=== PATIENT | female | born 1960 | race Hispanic/Latino ===

== ENCOUNTER 2019-05-26 14:19 | Inpatient (IN) | payer BC, OTHER ==
[~2019-05-26 14:19] MED LIST: ATOR10 PO; FENT100PAT TD; FENT25PAT TD; HYDR-4068 PO; METO50TA18 PO
[2019-05-26 14:43] LABS: BASOPHILS % (AUTO) 0.6 % (0.0-5.0); EOSINOPHILS % (AUTO) 6.9 % (0.0-8.0); HEMATOCRIT 29.1 % (36-48); LYMPHOCYTES % (AUTO) 18.8 % (21.0-51.0); MEAN CORPUSCULAR HEMOGLOBIN 32.3 pg (27.0-33.0); MEAN CORPUSCULAR HGB CONC 34.2 g/dL (32.0-36.0); MEAN CORPUSCULAR VOLUME 94.4 fL (79-99); MONOCYTES % (AUTO) 11.1 % (3.0-13.0); NEUTROPHILS % (AUTO) 62.6 % (40.0-77.0); PLATELET COUNT (AUTO) 90 K/uL (130-400); RED BLOOD CELL COUNT(AUTO) 3.09 MIL/uL (4.00-5.50); RED CELL DISTRIBUTION WIDTH 14.3 % (11.0-15.5); WHITE BLOOD COUNT (AUTO) 2.8 K/uL (4.8-10.8)
[2019-05-26 15:02] LABS: CREATININE 4.6 mg/dL (0.5-1.5); POTASSIUM 4.3 mmol/L (3.5-5.1)
[2019-05-26 15:09] LABS: ALBUMIN 3.6 g/dL (3.5-5.0); BILIRUBIN,TOTAL 0.8 mg/dL (0.2-1.0); TOTAL PROTEIN, SERUM 6.8 g/dL (6.0-8.3)
[2019-05-26 15:11] LABS: EOSINOPHILS % (MANUAL) 5 % (1-6); LYMPHOCYTES % (MANUAL) 27 % (22-44); MONOCYTES % (MANUAL) 6 % (2-9); SEGMENTED NEUTROPHILS % 62 % (40-70)
[2019-05-26 15:12] LABS: MAN.DIFF COMMENT-IMPRESSION MANUAL DIFFERENTIAL
[2019-05-26 15:13] LABS: PLATELET MORPHOLOGY COMMENT DECREASED
[2019-05-26 15:24] LABS: ABG BASE EXCESS -4.5 mmol/L (-2.0-3.0); ABG HCO3 21.7 mmol/L (21.0-28.0); ABG OXYGEN SATURATION 91.6 % (95.0-99.0); ABG PCO2 45 mmHg (32-45)
[2019-05-26 15:35] LABS: INR 1.02 (0.85-1.15); PARTIAL THROMBOPLASTIN TIME 25.5 SEC (26.3-35.5); PROTHROMBIN TIME 10.7 SEC (9.6-11.6)
[2019-05-26] MEDS ORDERED: CALCIUM GLUCONATE 1 GM/10 ML VIAL IV ONE (15:44)
[2019-05-26] MEDS ORDERED: SODIUM BICARB 50MEQ 50ML VIAL ONE (15:44)
[2019-05-26] MEDS ORDERED: SODIUM CHLORIDE 0.9% 100 ML IV ONE (15:45)
[2019-05-26] MEDS ORDERED: IOHEXOL-350 75 ML VIAL IV ONE (17:12)
[2019-05-26] MEDS ORDERED: ACETAMINOPHEN 325 MG TAB ONE (17:41)
[2019-05-26] MEDS ORDERED: HYDROCODONE/ACETAMINOPHEN 5/325 MG TAB PO PRN (17:45)
[2019-05-26] MEDS ORDERED: ACETAMINOPHEN 325 MG TAB PO PRN (17:45)
[2019-05-26] MEDS ORDERED: LACTULOSE 20 GM/30 ML UDCUP PO PRN (17:45)
[2019-05-26] MEDS ORDERED: ONDANSETRON HCL 4 MG/2 ML VIAL IV PRN (17:45)
[2019-05-26] MEDS ORDERED: SODIUM BICARBONATE 650 MG TAB PO PRN (17:45)
[2019-05-26] MEDS ORDERED: IPRATROPIUM/ALBUTEROL SULFATE 3 ML SOLUTION IH SCH (18:00)
[2019-05-26] MEDS ORDERED: HYDRALAZINE HCL 20 MG/ML VIAL IV PRN (18:30)
[2019-05-26 18:34] LABS: APPEARANCE,URINE Clear (CLEAR); BILIRUBIN,URINE Negative (NEGATIVE); COLOR,URINE Yellow (YELLOW); GLUCOSE, URINE (UA) Negative (NEGATIVE); KETONES,URINE Negative (NEGATIVE); LEUKOCYTE ESTERASE ,URINE Small (NEGATIVE); NITRATE,URINE Negative (NEGATIVE); OCCULT BLOOD,URINE Large (NEGATIVE); PH,URINE 6.5 (5.0-8.0); PROTEIN,URINE POS 1+ mg/dL (NEGATIVE); UROBILINOGEN,URINE 0.2 mg/dL (0.2-1.0)
[2019-05-26] MEDS ORDERED: IPRATROPIUM/ALBUTEROL SULFATE 3 ML SOLUTION IH ONE (18:51)
[2019-05-26 18:54] LABS: RBC,URINE 26-50 /HPF (0-1)
[2019-05-26 18:55] LABS: WBC,URINE 0-1 /HPF (0-1)
[2019-05-26 18:56] LABS: BACTERIA,URINE Rare /HPF (None Seen); MUCUS,URINE Rare LPF (None Seen)
[2019-05-26 21:20] LABS: AMMONIA < 3 umol/L (11-32); THYROID STIMULATING HORMONE 2.03 uIU/mL (0.36-3.74)
[2019-05-27] MEDS ORDERED: FAMOTIDINE/PF 20 MG/2 ML VIAL IV SCH (09:00)
== END 2019-05-26 21:17 | disposition left against medical advice (07) | DRG 204 ==
LOC: EDH 14:19 → EDHIP 14:20
PROVIDERS: ADMIT Family Medicine; ATTEND Family Medicine
DX: R06.02 Shortness of breath (principal); G93.41 Metabolic encephalopathy; N18.6 End stage renal disease; I12.0 Hypertensive chronic kidney disease with stage 5 chronic kidney disease or end stage renal disease; D69.6 Thrombocytopenia, unspecified; E66.9 Obesity, unspecified; Z85.528 Personal history of other malignant neoplasm of kidney; Z90.5 Acquired absence of kidney; Z96.649 Presence of unspecified artificial hip joint; Z99.2 Dependence on renal dialysis; Z53.21 Procedure and treatment not carried out due to patient leaving prior to being seen by health care provider
CPT/HCPCS: 36415; 36600; 71045; 71275; 80053; 81001; 82140; 82435; 82550; 82803; 82947; 83605; 84132; 84295; 84443; 84484; 85018; 85025; 85610; 85730; 87040; 93005; 94640; 94664; 99291; G0378; J0610; J3490; Q9967

== ENCOUNTER 2021-04-07 05:04 | Emergency (ER) | payer OTHER ==
[~2021-04-07] VITALS: Ht 170.2 cm; Wt 86.2 kg
[~2021-04-07 05:04] MED LIST changes: +AMLO-257 PO; -ATOR10 PO; +ENOX40DI9 SQ; -FENT25PAT TD; -METO50TA18 PO; +RIZA10TA41 PO
[2021-04-07 06:29] VITALS: BP 154/74
[2021-04-07 06:33] LABS: BASOPHILS % (AUTO) 0.7 % (0.0-5.0); EOSINOPHILS % (AUTO) 4.9 % (0.0-8.0); HEMATOCRIT 33.7 % (36-48); LYMPHOCYTES % (AUTO) 29.6 % (21.0-51.0); MEAN CORPUSCULAR HGB CONC 31.8 g/dL (32.0-36.0); MEAN CORPUSCULAR VOLUME 97.7 fL (79-99); MONOCYTES % (AUTO) 7.8 % (3.0-13.0); PLATELET COUNT (AUTO) 99 K/uL (130-400); RED BLOOD CELL COUNT(AUTO) 3.45 MIL/uL (4.00-5.50); RED CELL DISTRIBUTION WIDTH 14.3 % (11.0-15.5); WHITE BLOOD COUNT (AUTO) 3.1 K/uL (4.8-10.8)
[2021-04-07 06:46] LABS: ALBUMIN 4.1 g/dL (3.5-5.0); BILIRUBIN,TOTAL 0.5 mg/dL (0.2-1.0); POTASSIUM 5.3 mmol/L (3.5-5.1); TOTAL PROTEIN, SERUM 7.2 g/dL (6.0-8.3)
[2021-04-07 06:48] LABS: CREATININE 8.3 mg/dL (0.5-1.5)
[2021-04-07 07:10] LABS: INR 1.15 (0.85-1.15); PROTHROMBIN TIME 12.4 SEC (9.6-11.6)
[2021-04-07 08:10] VITALS: BP 165/89
[2021-04-07] MEDS ORDERED: HEPARIN 1,000 UNIT VIAL ONE (12:08)
[2021-04-07] MEDS ORDERED: LIDOCAINE HCL 1% MDV 50ML VIAL ONE (12:08)
[2021-04-07 13:31] VITALS: BP 159/69
== END 2021-04-07 14:34 | disposition home or self-care (01) ==
LOC: EDH 05:04
DX: T82.868A Thrombosis due to vascular prosthetic devices, implants and grafts, initial encounter (principal); I12.0 Hypertensive chronic kidney disease with stage 5 chronic kidney disease or end stage renal disease; N18.6 End stage renal disease; Z99.2 Dependence on renal dialysis; E78.00 Pure hypercholesterolemia, unspecified; Z88.8 Allergy status to other drugs, medicaments and biological substances; Y73.8 Miscellaneous gastroenterology and urology devices associated with adverse incidents, not elsewhere classified
CPT/HCPCS: 36415; 36580; 71045; 77001; 80053; 84484; 85025; 85610; 99285; C1752; C1769; J1644 ×2; J3490

== ENCOUNTER 2021-07-03 06:17 | Emergency (ER) | payer OTHER ==
[~2021-07-03] VITALS: Ht 170.2 cm; Wt 90.7 kg
[2021-07-03 07:14] LABS: BASOPHILS % (AUTO) 0.4 % (0.0-5.0); HEMATOCRIT 25.8 % (36-48); MEAN CORPUSCULAR HEMOGLOBIN 29.6 pg (27.0-33.0); MEAN CORPUSCULAR HGB CONC 30.6 g/dL (32.0-36.0); MEAN CORPUSCULAR VOLUME 96.6 fL (79-99); MONOCYTES % (AUTO) 12.1 % (3.0-13.0); NEUTROPHILS % (AUTO) 77.9 % (40.0-77.0); PLATELET COUNT (AUTO) 200 K/uL (130-400); RED BLOOD CELL COUNT(AUTO) 2.67 MIL/uL (4.00-5.50); RED CELL DISTRIBUTION WIDTH 14.8 % (11.0-15.5)
[2021-07-03 07:30] LABS: ALBUMIN 3.2 g/dL (3.5-5.0); CARBON DIOXIDE 29 mmol/L (21-32); CHLORIDE 100 mmol/L (101-111); GLOMERULAR FILTR. RATE CALC 5 mL/min (>60); GLUCOSE,RANDOM 84 mg/dL (70-105); INR 1.55 (0.85-1.15); POTASSIUM 3.9 mmol/L (3.5-5.1); PROTHROMBIN TIME 16.2 SEC (9.6-11.6); SODIUM SERUM 143 mmol/L (136-145); UREA NITROGEN, BLOOD 51 mg/dL (7-18)
[2021-07-03 07:34] LABS: ASPARTATE AMINOTRANSFERASE 11 U/L (10-37); BILIRUBIN,TOTAL 0.5 mg/dL (0.2-1.0)
[2021-07-03 07:39] LABS: ALANINE AMINOTRANSFERASE < 6 U/L (12-78)
[2021-07-03 07:40] LABS: CREATININE 8.2 mg/dL (0.5-1.5)
[2021-07-03] MEDS ORDERED: LIDOCAINE HCL 2% VISCOUS 15 ML UDCUP PO ONE (10:30)
[2021-07-03 13:53] VITALS: BP 141/84
[2021-07-03] MEDS ORDERED: LIDOCAINE HCL 1% 20 ML VIAL ONE (13:55)
[2021-07-03] MEDS ORDERED: HEPARIN 10,000 UNIT/10ML (1,000 UNIT/ML) VIAL ONE (14:24)
[2021-07-03] MEDS ORDERED: HEPARIN 1,000 UNIT VIAL ONE (14:24)
== END 2021-07-03 15:22 | disposition home or self-care (01) ==
LOC: EDH 06:17
DX: T82.41XA Breakdown (mechanical) of vascular dialysis catheter, initial encounter (principal); I12.0 Hypertensive chronic kidney disease with stage 5 chronic kidney disease or end stage renal disease; N18.6 End stage renal disease; Z83.3 Family history of diabetes mellitus; Z88.8 Allergy status to other drugs, medicaments and biological substances; Z99.2 Dependence on renal dialysis; Y84.8 Other medical procedures as the cause of abnormal reaction of the patient, or of later complication, without mention of misadventure at the time of the procedure; Y92.89 Other specified places as the place of occurrence of the external cause
CPT/HCPCS: 36415; 36580; 77001; 80053; 85025; 85610; 99285; C1752; C1894; J1644 ×2

== ENCOUNTER 2021-07-04 04:12 | Inpatient (IN) | payer OTHER ==
[~2021-07-04] VITALS: Ht 170.2 cm; Wt 83.5 kg
[2021-07-04] MEDS ORDERED: HYDROMORPHONE 1 MG INJ IVP ONE (05:00)
[2021-07-04] MEDS ORDERED: HYDROMORPHONE 1 MG INJ IVP PRN (05:00)
[2021-07-04] MEDS ORDERED: DiphenhydrAMINE HCL 50 MG/ML VIAL IV ONE (05:30)
[2021-07-04] MEDS ORDERED: LORAZEPAM 2 MG/ML 1 ML VIAL IVP ONE (05:30)
[2021-07-04] MEDS ORDERED: PHARMACY COMMUNICATION MISC SCH (12:30)
[2021-07-04 12:47] LABS: INR 2.45 (0.85-1.15); PROTHROMBIN TIME 24.6 SEC (9.6-11.6)
[2021-07-04 12:49] LABS: PARTIAL THROMBOPLASTIN TIME 47.4 SEC (26.3-35.5)
[2021-07-04] MEDS ORDERED: ONDANSETRON 4MG INJ IVP PRN (13:30)
[2021-07-04] MEDS ORDERED: FENTANYL 100 MCG/HR PATCH TD SCH (14:00)
[2021-07-04] MEDS ORDERED: 0.9%NACL 50ML 50 ML IV ONE (16:06)
[2021-07-04] MEDS: CEFAZOLIN SODIUM 1 GM VIAL IVP SCH (16:21)
[2021-07-04] MEDS: NS-20 MEQ KCL 1000ML 1,000 ML IV SCH (16:21)
[2021-07-04] MEDS: HYDROMORPHONE 1 MG INJ IVP PRN ×2 (16:23→21:52)
[2021-07-04 22:10] VITALS: BP 145/75
[2021-07-04] MEDS ORDERED: HYDROMORPHONE 4MG/ML 1ML VIAL IVP PRN (23:30)
[2021-07-05] VITALS (20 sets, daily range): BP systolic 130–169; BP diastolic 64–90
[2021-07-05] MEDS ORDERED: HYDROMORPHONE 2 MG VIAL (2MG/ML) ONE ×2 (01:28→05:05)
[2021-07-05 08:44] LABS: HEMATOCRIT 27.4 % (36-48); MEAN CORPUSCULAR HEMOGLOBIN 29.3 pg (27.0-33.0); MEAN CORPUSCULAR HGB CONC 30.7 g/dL (32.0-36.0); MEAN CORPUSCULAR VOLUME 95.5 fL (79-99); PLATELET COUNT (AUTO) 194 K/uL (130-400); RED BLOOD CELL COUNT(AUTO) 2.87 MIL/uL (4.00-5.50); RED CELL DISTRIBUTION WIDTH 14.4 % (11.0-15.5); WHITE BLOOD COUNT (AUTO) 4.8 K/uL (4.8-10.8)
[2021-07-05] MEDS: HYDROMORPHONE 2 MG VIAL (2MG/ML) IVP PRN ×3 (08:48→22:18)
[2021-07-05 08:57] LABS: CREATININE 7.8 mg/dL (0.5-1.5); POTASSIUM 4.2 mmol/L (3.5-5.1)
[2021-07-05 09:55] LABS: BASOPHILS % (MANUAL) 1 % (0-2); EOSINOPHILS % (MANUAL) 6 % (1-6); LYMPHOCYTES % (MANUAL) 16 % (22-44); MAN.DIFF COMMENT-IMPRESSION MANUAL DIFFERENTIAL; MONOCYTES % (MANUAL) 6 % (2-9); PLATELET MORPHOLOGY COMMENT ADEQUATE; SEGMENTED NEUTROPHILS % 71 % (40-70)
[2021-07-05] MEDS ORDERED: IPRATROPIUM/ALBUTEROL SULFATE 3 ML SOLUTION IH SCH (12:00)
[2021-07-05] MEDS: NS-20 MEQ KCL 1000ML 1,000 ML IV SCH (12:30)
[2021-07-05] MEDS: FENTANYL 100 MCG/HR PATCH TD SCH (12:55)
[2021-07-05] MEDS: IPRATROPIUM/ALBUTEROL SULFATE 3 ML SOLUTION IH SCH ×2 (13:36→18:14)
[2021-07-05] MEDS ORDERED: DIPHENHYDRAMINE HCL 25 MG CAPSULE PO SCH (15:30)
[2021-07-05] MEDS ORDERED: DIPHENHYDRAMINE HCL 25 MG CAPSULE ONE (15:33)
[2021-07-05] MEDS ORDERED: DiphenhydrAMINE HCL 50 MG/ML VIAL ONE (15:40)
[2021-07-05] MEDS ORDERED: DiphenhydrAMINE HCL 50 MG/ML VIAL IV ONE (16:00)
[2021-07-05] MEDS ORDERED: HEPARIN 5,000 UNIT VIAL ONE (18:34)
[2021-07-05] MEDS ORDERED: HEPARIN 5,000 UNIT VIAL SQ SCH (19:00)
[2021-07-05] MEDS: HEPARIN 5,000 UNIT VIAL IJ SCH (19:30)
[2021-07-06] VITALS (16 sets, daily range): BP systolic 134–167; BP diastolic 62–97
[2021-07-06] MEDS: HYDROMORPHONE 2 MG VIAL (2MG/ML) IVP PRN ×5 (04:06→23:24)
[2021-07-06] MEDS: IPRATROPIUM/ALBUTEROL SULFATE 3 ML SOLUTION IH SCH ×4 (06:27→19:14)
[2021-07-06] MEDS: AMLODIPINE 5 MG TAB PO SCH (08:15)
[2021-07-06] MEDS: ENOXAPARIN SODIUM 40 MG/0.4 ML SYRINGE SQ SCH (08:16)
[2021-07-06] MEDS: RIZATRIPTAN 10 MG PO SCH (09:00)
[2021-07-06] MEDS ORDERED: 0.9%NACL 1000ML 2,000 ML IV ONE (09:42)
[2021-07-06] MEDS: DiphenhydrAMINE HCL 50 MG/ML VIAL IV SCH (10:30)
[2021-07-06] MEDS ORDERED: DiphenhydrAMINE HCL 50 MG/ML VIAL ONE (11:06)
[2021-07-06] MEDS: HEPARIN 5,000 UNIT VIAL IJ SCH ×2 (11:30→12:05)
[2021-07-06] MEDS: LORAZEPAM 2 MG/ML 1 ML VIAL IVP SCH ×2 (14:00→18:00)
[2021-07-06 15:13] LABS: HEPATITIS Bs ANTIGEN SCREEN P Negative (Negative)
[2021-07-06] MEDS: CEFAZOLIN SODIUM 1 GM VIAL IVP SCH (15:29)
[2021-07-06] MEDS: NS-20 MEQ KCL 1000ML 1,000 ML IV SCH (16:33)
[2021-07-06] MEDS: HYDROCODONE/ACETAMINOPHEN 10/325 MG TAB PO PRN (21:43)
[2021-07-06] MEDS: GUAIFENESIN-DM 200/20 MG 10 ML PO PRN (23:24)
[2021-07-07] VITALS (23 sets, daily range): BP systolic 86–184; BP diastolic 41–99
[2021-07-07] MEDS: HYDROMORPHONE 2 MG VIAL (2MG/ML) IVP PRN ×6 (03:33→21:47)
[2021-07-07] MEDS: GUAIFENESIN-DM 200/20 MG 10 ML PO PRN ×2 (03:42→20:04)
[2021-07-07] MEDS: IPRATROPIUM/ALBUTEROL SULFATE 3 ML SOLUTION IH SCH ×7 (03:52→23:00)
[2021-07-07] MEDS: HYDROCODONE/ACETAMINOPHEN 10/325 MG TAB PO PRN (06:05)
[2021-07-07] MEDS: DiphenhydrAMINE HCL 50 MG/ML VIAL IV SCH (07:26)
[2021-07-07 07:52] LABS: HEMATOCRIT 28.2 % (36-48); MEAN CORPUSCULAR HEMOGLOBIN 28.6 pg (27.0-33.0); MEAN CORPUSCULAR HGB CONC 30.1 g/dL (32.0-36.0); MEAN CORPUSCULAR VOLUME 94.9 fL (79-99); PLATELET COUNT (AUTO) 207 K/uL (130-400); RED BLOOD CELL COUNT(AUTO) 2.97 MIL/uL (4.00-5.50); RED CELL DISTRIBUTION WIDTH 14.6 % (11.0-15.5); WHITE BLOOD COUNT (AUTO) 5.9 K/uL (4.8-10.8)
[2021-07-07 08:26] LABS: ALBUMIN 2.7 g/dL (3.5-5.0); BILIRUBIN,TOTAL 0.4 mg/dL (0.2-1.0); PHOSPHORUS 5.7 mg/dL (2.5-4.9); POTASSIUM 4.2 mmol/L (3.5-5.1); TOTAL PROTEIN, SERUM 6.7 g/dL (6.0-8.3)
[2021-07-07] MEDS: RIZATRIPTAN 10 MG PO SCH (09:00)
[2021-07-07] MEDS: AMLODIPINE 5 MG TAB PO SCH (09:00)
[2021-07-07 09:26] LABS: BASOPHILS % (MANUAL) 1 % (0-2); EOSINOPHILS % (MANUAL) 3 % (1-6); LYMPHOCYTES % (MANUAL) 13 % (22-44); MAN.DIFF COMMENT-IMPRESSION MANUAL DIFFERENTIAL; MONOCYTES % (MANUAL) 10 % (2-9); PLATELET MORPHOLOGY COMMENT ADEQUATE; SEGMENTED NEUTROPHILS % 73 % (40-70)
[2021-07-07] MEDS: ENOXAPARIN SODIUM 40 MG/0.4 ML SYRINGE SQ SCH (10:49)
[2021-07-07] MEDS: HEPARIN 5,000 UNIT VIAL IJ SCH ×2 (11:18→19:30)
[2021-07-07] MEDS: FENTANYL 100 MCG/HR PATCH TD SCH (13:12)
[2021-07-07] MEDS ORDERED: METOPROLOL TARTRATE 1 MG/ML 5ML VIAL IV ONE (15:37)
[2021-07-07] MEDS ORDERED: AMIODARONE 150MG VIAL 150 MG in DEXTROSE 5%-WATER 100 ML IV SCH (16:00)
[2021-07-07] MEDS ORDERED: PHARMACY COMMUNICATION MISC SCH (16:00)
[2021-07-07] MEDS ORDERED: AMIODARONE 360MG/200ML D5W(1MG/MIN) IV SCH ×2 (16:30)
[2021-07-07] MEDS: CEFAZOLIN SODIUM 1 GM VIAL IVP SCH (16:47)
[2021-07-07] MEDS: LORAZEPAM 2 MG/ML 1 ML VIAL IVP SCH (17:55)
[2021-07-07] MEDS: METOPROLOL TARTRATE 1 MG/ML 5ML VIAL IV PRN ×2 (18:22→18:24)
[2021-07-07] MEDS: METOPROLOL TARTRATE 25 MG TAB PO SCH (20:04)
[2021-07-07] MEDS ORDERED: AMIODARONE 540 MG/D5W 300ML (0.5MG/MIN) IV SCH ×2 (22:30)
[2021-07-08] MEDS: HYDROMORPHONE 2 MG VIAL (2MG/ML) IVP PRN ×5 (02:28→20:29)
[2021-07-08] MEDS: HEPARIN 5,000 UNIT VIAL IJ SCH (03:30)
[2021-07-08 04:09] VITALS: BP 126/72
[2021-07-08] MEDS: IPRATROPIUM/ALBUTEROL SULFATE 3 ML SOLUTION IH SCH (06:41)
[2021-07-08 07:00] VITALS: BP 126/69
[2021-07-08] MEDS: METOPROLOL TARTRATE 25 MG TAB PO SCH (07:56)
[2021-07-08] MEDS: CEFAZOLIN SODIUM 1 GM VIAL IVP SCH (07:57)
[2021-07-08] MEDS: ENOXAPARIN SODIUM 40 MG/0.4 ML SYRINGE SQ SCH (07:58)
[2021-07-08] MEDS: RIZATRIPTAN 10 MG PO SCH (08:05)
[2021-07-08] MEDS ORDERED: IPRATROPIUM/ALBUTEROL SULFATE 3 ML SOLUTION IH PRN (09:00)
[2021-07-08] MEDS ORDERED: ENOXAPARIN SODIUM 1 MG/KG SQ SCH (09:00)
[2021-07-08] MEDS: ENOXAPARIN SODIUM 80 MG/0.8 ML SQ SCH (09:39)
[2021-07-08] MEDS: DILTIAZEM 60MG TAB PO SCH ×4 (09:39→23:47)
[2021-07-08 11:00] VITALS: BP 107/64
[2021-07-08 16:00] VITALS: BP 101/60
[2021-07-08 20:05] VITALS: BP 97/60
[2021-07-09] VITALS (7 sets, daily range): BP systolic 116–169; BP diastolic 65–122
[2021-07-09] MEDS: HYDROMORPHONE 2 MG VIAL (2MG/ML) IVP PRN ×5 (01:02→20:54)
[2021-07-09] MEDS ORDERED: HEPARIN 5,000 UNIT VIAL IJ SCH (03:30)
[2021-07-09 04:30] LABS: MEAN CORPUSCULAR HEMOGLOBIN 28.9 pg (27.0-33.0); MEAN CORPUSCULAR HGB CONC 30.4 g/dL (32.0-36.0); MEAN CORPUSCULAR VOLUME 95.1 fL (79-99); RED BLOOD CELL COUNT(AUTO) 2.84 MIL/uL (4.00-5.50); RED CELL DISTRIBUTION WIDTH 14.5 % (11.0-15.5); WHITE BLOOD COUNT (AUTO) 3.8 K/uL (4.8-10.8)
[2021-07-09 04:48] LABS: CREATININE 7.4 mg/dL (0.5-1.5); POTASSIUM 4.1 mmol/L (3.5-5.1)
[2021-07-09] MEDS: DILTIAZEM 60MG TAB PO SCH ×3 (05:51→18:03)
[2021-07-09] MEDS: CEFAZOLIN SODIUM 1 GM VIAL IVP SCH (08:17)
[2021-07-09] MEDS: ENOXAPARIN SODIUM 80 MG/0.8 ML SQ SCH (08:18)
[2021-07-09] MEDS: RIZATRIPTAN 10 MG PO SCH (08:18)
[2021-07-09] MEDS: GUAIFENESIN-DM 200/20 MG 10 ML PO PRN ×2 (10:47→18:02)
[2021-07-09] MEDS: FENTANYL 100 MCG/HR PATCH TD SCH (12:35)
[2021-07-09] MEDS ORDERED: PHARMACY COMMUNICATION MISC SCH (14:30)
[2021-07-09] MEDS ORDERED: COMPOUND PO MISCELLANEOUS 1 EACH MISC MISC PRN (15:00)
[2021-07-09] MEDS: MAG/ALUM/SIMETH 30ML 60 ML, LIDOCAINE HCL 2% VISCOUS 60 ML, DIPHENHYDRAMINE HCL 150 MG PO SCH ×3 (18:02)
[2021-07-09] MEDS: DiphenhydrAMINE HCL 50 MG/ML VIAL IV PRN (20:28)
[2021-07-10] VITALS (18 sets, daily range): BP systolic 125–151; BP diastolic 53–90
[2021-07-10] MEDS: DILTIAZEM 60MG TAB PO SCH ×3 (00:39→12:38)
[2021-07-10] MEDS: HYDROCODONE/ACETAMINOPHEN 10/325 MG TAB PO PRN (03:45)
[2021-07-10 07:02] LABS: INR 1.85 (0.85-1.15); PROTHROMBIN TIME 19.1 SEC (9.6-11.6)
[2021-07-10] MEDS: RIZATRIPTAN 10 MG PO SCH (07:36)
[2021-07-10] MEDS: CEFAZOLIN SODIUM 1 GM VIAL IVP SCH (09:00)
[2021-07-10] MEDS: ENOXAPARIN SODIUM 80 MG/0.8 ML SQ SCH (09:00)
[2021-07-10] MEDS: MAG/ALUM/SIMETH 30ML 60 ML, LIDOCAINE HCL 2% VISCOUS 60 ML, DIPHENHYDRAMINE HCL 150 MG PO SCH ×3 (09:00)
[2021-07-10] MEDS: DiphenhydrAMINE HCL 50 MG/ML VIAL IV PRN ×2 (09:11→09:12)
== END 2021-07-10 15:42 | disposition home or self-care (01) | DRG 466 ==
LOC: EDH 04:12 → EDHIP 11:21 → OBSVTOIN 11:21 → 3CH 20:30 → 4DH 07-07 17:12
PROVIDERS: ADMIT Internal Medicine Hematology & Oncology; ATTEND Internal Medicine Hematology & Oncology
PROC: 02PAX3Z Removal of Infusion Device from Heart, External Approach (ICD-10-PCS; principal; 2021-07-03)
PROC: 02H633Z Insertion of Infusion Device into Right Atrium, Percutaneous Approach (ICD-10-PCS; 2021-07-03)
PROC: 5A1D70Z Performance of Urinary Filtration, Intermittent, Less than 6 Hours Per Day (ICD-10-PCS; 2021-07-05)
PROC: 5A1D70Z Performance of Urinary Filtration, Intermittent, Less than 6 Hours Per Day (ICD-10-PCS; 2021-07-06)
PROC: 5A1D70Z Performance of Urinary Filtration, Intermittent, Less than 6 Hours Per Day (ICD-10-PCS; 2021-07-07)
PROC: 5A1D70Z Performance of Urinary Filtration, Intermittent, Less than 6 Hours Per Day (ICD-10-PCS; 2021-07-10)
DX: T82.41XA Breakdown (mechanical) of vascular dialysis catheter, initial encounter (principal); I12.0 Hypertensive chronic kidney disease with stage 5 chronic kidney disease or end stage renal disease; I33.9 Acute and subacute endocarditis, unspecified; E11.22 Type 2 diabetes mellitus with diabetic chronic kidney disease; I48.91 Unspecified atrial fibrillation; I48.92 Unspecified atrial flutter; N18.6 End stage renal disease; M35.2 Behcet's disease; D63.1 Anemia in chronic kidney disease; G89.4 Chronic pain syndrome; M19.90 Unspecified osteoarthritis, unspecified site; M47.899 Other spondylosis, site unspecified; Z96.649 Presence of unspecified artificial hip joint; Y84.1 Kidney dialysis as the cause of abnormal reaction of the patient, or of later complication, without mention of misadventure at the time of the procedure; Z99.2 Dependence on renal dialysis; Z88.8 Allergy status to other drugs, medicaments and biological substances; Z85.528 Personal history of other malignant neoplasm of kidney; Z90.5 Acquired absence of kidney; Y92.89 Other specified places as the place of occurrence of the external cause; Z86.79 Personal history of other diseases of the circulatory system; Z86.711 Personal history of pulmonary embolism; Z86.718 Personal history of other venous thrombosis and embolism; Z83.3 Family history of diabetes mellitus; Z82.49 Family history of ischemic heart disease and other diseases of the circulatory system
CPT/HCPCS: 36415; 36580; 71045; 77001; 80048; 80053; 84100; 84132; 85025; 85027; 85610; 85730; 86704; 86706; 87340; 90935; 93005; 93306; 93356; 94640; 94664; C1752; C1894; G0378; J0282; J0690; J1170; J1200; J1644; J1650; J2405; J3480; J3490; J7030; J7060; Q0163

== ENCOUNTER 2021-07-27 02:47 | Emergency (ER) | payer OTHER ==
[~2021-07-27] VITALS: Ht 162.6 cm; Wt 81.6 kg
[~2021-07-27 02:47] MED LIST changes: -AMLO-257 PO
[2021-07-27 02:55] VITALS: BP 147/98
[2021-07-27] MEDS ORDERED: ONDANSETRON 4MG INJ ONE (03:00)
[2021-07-27] MEDS ORDERED: HYDROMORPHONE 1 MG INJ IVP ONE (03:00)
[2021-07-27] MEDS ORDERED: ONDANSETRON 4MG INJ IVP ONE (03:00)
[2021-07-27] MEDS ORDERED: HYDROMORPHONE 1 MG INJ ONE (03:01)
[2021-07-27 03:15] LABS: BASOPHILS % (AUTO) 0.5 % (0.0-5.0); EOSINOPHILS % (AUTO) 0.4 % (0.0-8.0); HEMATOCRIT 30.8 % (36-48); LYMPHOCYTES % (AUTO) 13.9 % (21.0-51.0); MEAN CORPUSCULAR HEMOGLOBIN 29.6 pg (27.0-33.0); MEAN CORPUSCULAR HGB CONC 29.9 g/dL (32.0-36.0); MONOCYTES % (AUTO) 10.3 % (3.0-13.0); NEUTROPHILS % (AUTO) 74.4 % (40.0-77.0); PLATELET COUNT (AUTO) 152 K/uL (130-400); RED BLOOD CELL COUNT(AUTO) 3.11 MIL/uL (4.00-5.50); RED CELL DISTRIBUTION WIDTH 15.8 % (11.0-15.5); WHITE BLOOD COUNT (AUTO) 5.5 K/uL (4.8-10.8)
[2021-07-27 03:28] LABS: ALBUMIN 3.5 g/dL (3.5-5.0); ASPARTATE AMINOTRANSFERASE 7 U/L (10-37); BILIRUBIN,TOTAL 0.4 mg/dL (0.2-1.0); CARBON DIOXIDE 27 mmol/L (21-32); CHLORIDE 96 mmol/L (101-111); GLOMERULAR FILTR. RATE CALC 3 mL/min (>60); GLUCOSE,RANDOM 102 mg/dL (70-105); POTASSIUM 3.9 mmol/L (3.5-5.1); SODIUM SERUM 139 mmol/L (136-145); UREA NITROGEN, BLOOD 67 mg/dL (7-18)
[2021-07-27 03:29] LABS: ALANINE AMINOTRANSFERASE < 6 U/L (12-78)
[2021-07-27 03:30] LABS: CREATININE 12.3 mg/dL (0.5-1.5)
[2021-07-27 03:45] LABS: INR 1.46 (0.85-1.15); PROTHROMBIN TIME 15.4 SEC (9.6-11.6)
[2021-07-27] MEDS ORDERED: HYDROMORPHONE 1 MG INJ IVP SCH (06:30)
== END 2021-07-27 07:26 | disposition home or self-care (01) ==
LOC: EDH 02:47
DX: S70.01XA Contusion of right hip, initial encounter (principal); M54.9 Dorsalgia, unspecified; M79.601 Pain in right arm; M79.602 Pain in left arm; I12.0 Hypertensive chronic kidney disease with stage 5 chronic kidney disease or end stage renal disease; N18.6 End stage renal disease; Z85.528 Personal history of other malignant neoplasm of kidney; Z86.711 Personal history of pulmonary embolism; Z86.718 Personal history of other venous thrombosis and embolism; Z79.01 Long term (current) use of anticoagulants; Z88.8 Allergy status to other drugs, medicaments and biological substances; Z99.2 Dependence on renal dialysis; Z79.899 Other long term (current) drug therapy; W18.39XA Other fall on same level, initial encounter; Y93.89 Activity, other specified; Y92.89 Other specified places as the place of occurrence of the external cause; Y99.8 Other external cause status
CPT/HCPCS: 36415; 70450; 74176; 80053; 85025; 85610; 96374; 96375; 96376; 99284; J1170 ×2; J2405